=== PATIENT | male | born 1960 | race Caucasian/White ===

== ENCOUNTER 2023-04-29 12:11 | Emergency (ER) | payer MEDICAID ==
[~2023-04-29] VITALS: Ht 172.7 cm; Wt 91.0 kg
[2023-04-29 12:16] VITALS: O2SAT 99
[2023-04-29 12:36] LABS: BASOPHILS % 0.6 % (0.0-2.0); HEMATOCRIT. 23.9 % (42.0-52.0); HEMOGLOBIN. 8.2 g/dL (14.0-18.0); LYMPHOCYTES % 26.4 % (20.0-50.0); MEAN CORPUSCULAR HEMOGLOBIN 32.4 pg (28.0-32.0); MEAN CORPUSCULAR VOLUME 94.6 fL (80.0-94.0); MONOCYTES % 11.8 % (2.0-8.0); NEUTROPHILS % 59.2 % (40.0-76.0); PLATELET 382 x1000/uL (130-400); RED BLOOD CELL COUNT 2.52 mill/uL (4.7-6.1); RED CELL DISTRIBUTION WIDTH 13.4 % (11.6-14.6)
[2023-04-29 12:43] LABS: CHLORIDE 96 mEq/L (98-107)
[2023-04-30 03:14] VITALS: BP 140/88; PULSE 73; RESP 18; TEMP 98.1
== END 2023-04-30 03:15 | disposition home or self-care (01) ==
LOC: ER 12:11 → SUPCPDRO 15:22 → ER 04-30 03:15
DX: R53.1 Weakness (principal); I12.0 Hypertensive chronic kidney disease with stage 5 chronic kidney disease or end stage renal disease; E11.22 Type 2 diabetes mellitus with diabetic chronic kidney disease; N18.6 End stage renal disease; Z99.2 Dependence on renal dialysis
CPT/HCPCS: 36415; 71045; 80053; 83880; 84484; 85025; 93005; 99285

== ENCOUNTER 2025-05-17 23:00 | Emergency (ER) | payer MEDICARE, MEDICAID ==
[~2025-05-17] VITALS: Ht 172.7 cm; Wt 106.8 kg
[~2025-05-17 23:00] MED LIST: AMLO10TA80 PO; ASPI-1406 PO; ATOR40TA70 MT; CALC667C PO; CHOL400D7 PO; FINA5TAB11 PO; GABA300C PO; GEMF600T90 PO; INSU100I28 SQ; OXYB-52 PO; PRIM250T7 PO; TAMS-54 PO
[2025-05-17 23:04] VITALS: TEMP 36.8; O2SAT 99
[2025-05-18 03:38] LABS: CLARITY URINE CLOUDY (CLEAR); COLOR URINE YELLOW (YELLOW); GLUCOSE URINE 2+ (NEGATIVE); KETONES URINE NEGATIVE (NEGATIVE); LEUKOCYTE ESTERASE URINE 2+ (NEGATIVE); NITRITE URINE NEGATIVE (NEGATIVE); OCCULT BLOOD URINE 1+ (NEGATIVE); PH URINE 6.5 (4.5-8.0); PROTEIN URINE 3+ (NEGATIVE); SPECIFIC GRAVITY URINE 1.012 (1.005-1.030); UROBILINOGEN URINE 0.2 E.U./dL (0.2-1.0)
[2025-05-18 04:49] LABS: WBC URINE TNTC /hpf (0-2)
[2025-05-18 04:51] VITALS: BP 127/67; PULSE 64; RESP 18; O2SAT 100
[2025-05-18 04:51] LABS: RBC URINE 0-2 /hpf (0-2)
[2025-05-18 04:52] LABS: BACTERIA URINE 3+; SQUAMOUS EPITHELIAL CELL URINE NONE SEEN /lpf (RARE/1+)
== END 2025-05-18 04:51 | disposition home or self-care (01) ==
LOC: ER 23:00
DX: T83.9XXA Unspecified complication of genitourinary prosthetic device, implant and graft, initial encounter (principal); E11.9 Type 2 diabetes mellitus without complications; I10 Essential (primary) hypertension; Z79.4 Long term (current) use of insulin; Z79.82 Long term (current) use of aspirin; Z79.899 Other long term (current) drug therapy; Z99.2 Dependence on renal dialysis; Y92.89 Other specified places as the place of occurrence of the external cause
CPT/HCPCS: 51702; 81003; 87077; 99284